=== PATIENT | male | born 1940 | race American Indian/Alaskan Native ===

== ENCOUNTER 2022-07-09 12:56 | Emergency (ER) | payer MEDICARE, OTHER ==
[2022-07-09] MEDS ORDERED: Acetaminophen/oxyCODONE 325-5 MG Tab PO ONE (13:01)
[2022-07-09 13:41] LABS: BLOOD UREA NITROGEN,BUN 9 mg/dL (7.0-18.0); CARBON DIOXIDE,CO2 28.1 mmol/L (21.0-32.0); CHLORIDE,CL 104 mmol/L (98-107); GLUCOSE RANDOM 190 mg/dL (74-106); POTASSIUM,K 3.8 mmol/L (3.5-5.1); SODIUM,NA 139 mmol/L (136-148)
[2022-07-09 13:49] LABS: ESTIMATED GFR 68 mL/min (>60)
[2022-07-09 15:26] VITALS: BP 145/102; PULSE 87
== END 2022-07-09 15:26 | disposition home or self-care (01) ==
LOC: MW.ED 12:56
DX: M25.512 Pain in left shoulder (principal); M25.562 Pain in left knee; R07.89 Other chest pain; R07.81 Pleurodynia; M25.552 Pain in left hip; E78.00 Pure hypercholesterolemia, unspecified; K21.9 Gastro-esophageal reflux disease without esophagitis; E11.9 Type 2 diabetes mellitus without complications; Z88.2 Allergy status to sulfonamides; Z79.02 Long term (current) use of antithrombotics/antiplatelets; Z79.4 Long term (current) use of insulin; Z79.899 Other long term (current) drug therapy; W01.0XXA Fall on same level from slipping, tripping and stumbling without subsequent striking against object, initial encounter
CPT/HCPCS: 36415; 70450; 71250; 72125; 73030; 73562; 80053; 85025; 85610; 85730; 93005; 99284; A9270